=== PATIENT | female | born 1940 | race Caucasian/White ===

== ENCOUNTER 2018-11-05 20:23 | Emergency (ER) | payer MEDICARE, SELFPAY ==
[2018-11-05 20:25] VITALS: BP 176/55; PULSE 57; RESP 16; TEMP 36.7; O2SAT 100; BMI 30.2
[2018-11-05] MEDS: ASPIRIN 81 MG TAB 324 MG PO (20:32)
[2018-11-05 20:39] VITALS: BP 176/55; PULSE 57; RESP 16; TEMP 36.7; O2SAT 100
--- NOTE | 2018-11-05 20:39 | DI.RAD.S_ITS ---
PROCEDURE: XR CHEST 1V INDICATIONS: chest pain TECHNIQUE: One view of the chest was acquired. COMPARISON: None. FINDINGS: Surgical changes and devices: Surgical clips are projected over the right hemithorax. Lungs and pleura: No pleural effusions or pneumothorax. Lungs are clear. Mediastinum: Mediastinal contours appear normal. Heart size is normal. Bones and chest wall: No suspicious bony lesions. Overlying soft tissues appear unremarkable. IMPRESSION: No acute cardiopulmonary findings. Dictated by: Emily Heller M.D. on 11/05/2018 at 21:19 Approved by: Emily Heller M.D. on 11/05/2018 at 21:19
--- NOTE | 2018-11-05 21:00 | ED_ITS ---
HPI - Chest Pain General Chief Complaint: Chest Pain Stated Complaint: CHEST PAIN Time Seen by Provider: 11/05/18 20:36 Source: patient Mode of arrival: ambulatory Limitations: no limitations History of Present Illness HPI narrative: patient is a 78-year-old female who presents with chest discomfort. It sounds as though she has a history of angina and coronary artery disease but no stents or her LA. She is followed closely by a clinical safety specialist some filling him. She says she was seen and evaluated about a month ago she was having chest discomfort and shoulder discomfort at that time. She was put on a nitroglycerin patch which she wore for about 3 weeks and she says it did not help her. She stopped the patch about a week ago. He has had increasing symptoms since then worsening symptoms today. She took 3 nitroglycerin tablets at home which she says has now started helping and her pain is much improved. Related Data Home Medications Medication Instructions Recorded Confirmed atenolol 25 mg BEDTIME 11/05/18 11/05/18 atorvastatin 20 mg PO DAILY 11/05/18 11/05/18 hydrochlorothiazide 12.5 mg PO DAILY 11/05/18 11/05/18 lisinopril 5 mg PO DAILY 11/05/18 11/05/18 sertraline 50 mg PO DAILY 11/05/18 11/05/18 Allergies Allergy/AdvReac Type Severity Reaction Status Date / Time cefpodoxime [CEFPODOXIME] Allergy Unknown Verified 11/05/18 23:05 celecoxib [From CELEBREX] Allergy Unknown Verified 11/05/18 23:05 lansoprazole [From PREVACID] Allergy Unknown Verified 11/05/18 23:05 omeprazole [From PRILOSEC] Allergy Unknown Verified 11/05/18 23:05 sertraline [From ZOLOFT] Allergy Unknown Verified 11/05/18 23:05 simvastatin [SIMVASTATIN] Allergy Unknown Verified 11/05/18 23:05 IODINE Allergy Mild Uncoded 01/27/18 11:48 From CARBOCAINE Allergy Unknown Uncoded 01/27/18 11:48 From TYLENOL Allergy Unknown Uncoded 01/27/18 11:48 LATEX Allergy Unknown Uncoded 01/27/18 11:48 Review of Systems Review of Systems ROS Unobtainable: All systems reviewed & are unremarkable except as noted in HPI and below Constitutional Denies chills, Denies fever(s), Denies lethargy and Denies weakness Eyes Denies change in vision, Denies eye discharge, Denies irritation and Denies loss of vision Cardiovascular Reports as per HPI, Denies dyspnea and Denies dyspnea on exertion Respiratory Denies cough, Denies dyspnea, Denies dyspnea on exertion and Denies wheezing Gastrointestinal Gastrointestinal: Denies abdominal pain, Denies change in bowel habits, Denies diarrhea, Denies nausea and Denies vomiting Musculoskeletal Denies back pain, Denies muscle weakness, Denies numbness and Denies tingling Integumentary/Breasts Denies pruritus, Denies erythema, Denies rash and Denies wounds Neurologic Denies loss of vision, Denies numbness, Denies tingling and Denies weakness Allergic/Immunologic Denies wheezing [facility] Medical History Hyperlipidemia (Chronic) Hypertension (Chronic) Coronary artery disease (Suspected) Social History Smoking Status: Never smoker Exam Initial Vital Signs Initial Vital Signs: Vital Signs Temperature 98.0 F 11/05/18 20:25 Pulse Rate 57 L 11/05/18 20:25 Respiratory Rate 16 11/05/18 20:25 Blood Pressure 176/55 H 11/05/18 20:25 Pulse Oximetry 100 11/05/18 20:25 GENERAL: Alert pleasant elderly female no acute distress HEENT: Head atraumatic,EOMI, pupils reactive, CARDIOVASCULAR: Regular rate and rhythm without murmurs, rubs or gallops. RESPIRATORY: Breath sounds equal bilaterally, no wheezes rales or rhonchi. ABDOMEN: Soft, nontender. Normoactive bowel sounds all 4 quadrants. No guarding or rebound. EXTREMITIES: Normal range of motion, no clubbing or edema. Neurovascularly intact NEUROLOGICAL: Alert and oriented x4.Normal gait and speech. SKIN: Warm, dry, no laceration, no petechiae, no rashes or lesions. Course Orders Ordered: ED Orders 11/05/18 20:39 XR chest 1V Stat EKG-12 Lead Stat 11/05/18 20:40 Complete Blood Count AUTO DIFF Stat Comprehensive Metabolic Panel Stat Lipase Stat Partial Thromboplastin Time Stat Prothrombin Time INR Stat Troponin & CK Cardiac Panel Stat 11/05/18 23:53 Troponin I Stat 11/06/18 EKG-12 Lead Routine Discontinued Medications Aspirin (Aspirin Chew) 324 mg PO NOW ONE Stop: 11/06/18 02:24 Last Admin: 11/05/18 20:32 Dose: 324 mg Vital Signs - 8 hr 11/05/18 20:25 11/05/18 20:39 11/05/18 21:31 Temperature 98.0 F 98.0 F Pulse Rate 57 L 57 L 48 L Respiratory Rate 16 16 17 Blood Pressure 176/55 H Blood Pressure [Left Arm] 176/55 H 162/49 H Pulse Oximetry 100 100 100 11/05/18 22:35 11/05/18 23:06 11/06/18 01:19 Temperature Pulse Rate 52 L 49 L 46 L Respiratory Rate 12 12 13 Blood Pressure Blood Pressure [Left Arm] 169/46 H 169/60 H 158/67 H Pulse Oximetry 99 100 99 11/06/18 02:09 Temperature Pulse Rate 45 L Respiratory Rate 14 Blood Pressure Blood Pressure [Left Arm] 174/61 H Pulse Oximetry 98 MDM - Chest Pain Lab Data Attestation: I reviewed the patient's lab results. Result diagrams: 11/05/18 20:40 11/05/18 20:40 Lab Results 11/05/18 11/05/18 11/05/18 Range/Units 20:40 20:40 20:40 WBC 6.8 (4.5-11.0) X10^3/uL RBC 4.39 (4.0-5.2) X10^6/uL Hgb 13.3 (12.0-16.0) g/dL Hct 39.1 (36-46) % MCV 89.1 (80-100) fL MCH 30.3 (26-34) PG MCHC 34.0 (30-36) % RDW 12.9 (11.6-14.8) % Plt Count 229 (150-400) X10^3/uL Neut % (Auto) 63.4 (50-75) % Lymph % (Auto) 25.9 (25-40) % [place] % (Auto) 7.3 (3-14) % Eos % (Auto) 2.6 (2-4) % Baso % (Auto) 0.8 (0-2) % Neut # (Auto) 4300 (5979-3118) /uL Lymph # (Auto) 1800 (7215-1535) /uL [place] # (Auto) 500 (0-900) /uL Eos # (Auto) 200 (0-450) /uL Baso # (Auto) 100 (0-100) /uL PT 11.3 (10.1-12.7) SECONDS INR 1.0 (0.9-1.3) APTT 20 L (26.4-36.2) SECONDS Sodium 140 (137-145) mmol/L Potassium 3.8 (3.4-5.1) mmol/L Chloride 104 (98-107) mmol/L Carbon Dioxide 29 (22-32) mmol/L BUN 20 H (7-17) mg/dL Creatinine 0.90 (0.52-1.04) mg/dL Estimated GFR > 60.0 (>60) mL/min BUN/Creatinine Ratio 22.2 H (6-22) Glucose 106 (80-110) mg/dL Calcium 10.1 (8.4-10.2) mg/dL Total Bilirubin 0.5 (0.2-1.3) mg/dL AST 33 (14-36) IU/L ALT 28 (9-52) IU/L Alkaline Phosphatase 94 (38-126) U/L Total Creatine Kinase 59 (30-135) U/L CK-MB (CK-2) TNP CK-MB (CK-2) Rel Index TNP Troponin I < 0.012 (0.01-0.034) ng/mL Total Protein 7.5 (6.3-8.2) g/dL Albumin 4.2 (3.5-5.0) g/dL Globulin 3.3 (1.7-4.1) g/dL Albumin/Globulin Ratio 1.3 (1.0-2.8) Lipase 273 (23-300) U/L 11/05/18 Range/Units 23:53 WBC (4.5-11.0) X10^3/uL RBC (4.0-5.2) X10^6/uL Hgb (12.0-16.0) g/dL Hct (36-46) % MCV (80-100) fL MCH (26-34) PG MCHC (30-36) % RDW (11.6-14.8) % Plt Count (150-400) X10^3/uL Neut % (Auto) (50-75) % Lymph % (Auto) (25-40) % [place] % (Auto) (3-14) % Eos % (Auto) (2-4) % Baso % (Auto) (0-2) % Neut # (Auto) (3898-2861) /uL Lymph # (Auto) (2238-1124) /uL [place] # (Auto) (0-900) /uL Eos # (Auto) (0-450) /uL Baso # (Auto) (0-100) /uL PT (10.1-12.7) SECONDS INR (0.9-1.3) APTT (26.4-36.2) SECONDS Sodium (137-145) mmol/L Potassium (3.4-5.1) mmol/L Chloride (98-107) mmol/L Carbon Dioxide (22-32) mmol/L BUN (7-17) mg/dL Creatinine (0.52-1.04) mg/dL Estimated GFR (>60) mL/min BUN/Creatinine Ratio (6-22) Glucose (80-110) mg/dL Calcium (8.4-10.2) mg/dL Total Bilirubin (0.2-1.3) mg/dL AST (14-36) IU/L ALT (9-52) IU/L Alkaline Phosphatase (38-126) U/L Total Creatine Kinase (30-135) U/L CK-MB (CK-2) CK-MB (CK-2) Rel Index Troponin I < 0.012 (0.01-0.034) ng/mL Total Protein (6.3-8.2) g/dL Albumin (3.5-5.0) g/dL Globulin (1.7-4.1) g/dL Albumin/Globulin Ratio (1.0-2.8) Lipase (23-300) U/L Imaging Data Chest x-ray: Radiologist's impression: PROCEDURE: XR CHEST 1V INDICATIONS: chest pain TECHNIQUE: One view of the chest was acquired. COMPARISON: None. FINDINGS: Surgical changes and devices: Surgical clips are projected over the right hemithorax. Lungs and pleura: No pleural effusions or pneumothorax. Lungs are clear. Mediastinum: Mediastinal contours appear normal. Heart size is normal. Bones and chest wall: No suspicious bony lesions. Overlying soft tissues appear unremarkable. IMPRESSION: No acute cardiopulmonary findings. Dictated by: Emily Heller M.D. on 11/05/2018 at 21:19 ECG Data Attestation: I personally reviewed and interpreted this ECG as follows: Prior ECG tracings: available for review Interpretation: EKG CC 1.: Sinus rhythm rate [address] changes no T-wave inversions does have Q-wave noted in lead 3Similar to previous EKG. EKG 2. Sinus rhythm rate 45 no changes MDM Narrative Medical decision making narrative: Patient has Cardiology in [place], she has what sounds like known coronary artery disease without a stent managed medically. Increasing chest discomfort and symptoms. Attempted to treat as outpatient with nitroglycerin patches but did not seem to be working and increased pain tonight. Patient has no EKG changes and troponin is negative. He will need further workup. 12:12AM Dr. [place] hospitalist at [facility] updated patient's symptoms test results accepts patient transfer Patient has had no further chest pain in the ED. Discharge Plan Departure Patient Disposition: [facility] Clinical Impression: Chest pain Prescriptions: No Action atorvastatin 20 mg Tablet 20 mg PO DAILY RF: 0 atenolol 25 mg Tablet 25 mg BEDTIME RF: 0 lisinopril 5 mg Tablet 5 mg PO DAILY RF: 0 sertraline 50 mg Tablet 50 mg PO DAILY RF: 0 hydrochlorothiazide 12.5 mg Tablet 12.5 mg PO DAILY RF: 0
[2018-11-05 21:06] LABS: Add Manual Diff / Slide Review NO; Basophils Absolute Auto 100 /uL (0-100); Basophils Percent Auto 0.8 % (0-2); Eosinophils Absolute Auto 200 /uL (0-450); Eosinophils Percent Auto 2.6 % (2-4); Hematocrit 39.1 % (36-46); Hemoglobin 13.3 g/dL (12.0-16.0); Lymphocytes Absolute Auto 1800 /uL (1100-4500); Lymphocytes Percent Auto 25.9 % (25-40); Mean Corpuscular Hemoglobin 30.3 PG (26-34); Mean Corpuscular Volume 89.1 fL (80-100); Monocytes Absolute Auto 500 /uL (0-900); Monocytes Percent Auto 7.3 % (3-14); Neutrophils Absolute Auto 4300 /uL (1500-7000); Neutrophils Percent Auto 63.4 % (50-75); Platelet Count 229 X10^3/uL (150-400); Red Blood Cell Count 4.39 X10^6/uL (4.0-5.2); Red Cell Distribution Width 12.9 % (11.6-14.8); White Blood Cell Count 6.8 X10^3/uL (4.5-11.0)
[2018-11-05 21:11] LABS: Prothrombin Time 11.3 SECONDS (10.1-12.7)
[2018-11-05 21:14] LABS: PTT Partial Thromboplastin Tim 20 SECONDS (26.4-36.2)
[2018-11-05 21:16] LABS: Alanine Aminotransferase 28 IU/L (9-52); Albumin 4.2 g/dL (3.5-5.0); Albumin Globulin Ratio 1.3 (1.0-2.8); Alkaline Phosphatase 94 U/L (38-126); Aspartate Aminotransferase 33 IU/L (14-36); BUN Creatinine Ratio 22.2 (6-22); Bilirubin Total 0.5 mg/dL (0.2-1.3); Blood Urea Nitrogen 20 mg/dL (7-17); Calcium 10.1 mg/dL (8.4-10.2); Carbon Dioxide 29 mmol/L (22-32); Chloride 104 mmol/L (98-107); Creatine Kinase 59 U/L (30-135); Estimated Glomerular Filt Rate > 60.0 mL/min (>60); Globulin 3.3 g/dL (1.7-4.1); Glucose 106 mg/dL (80-110); HEMOLYSIS < 15 (0-50); Lipase 273 U/L (23-300); Potassium 3.8 mmol/L (3.4-5.1); Sodium 140 mmol/L (137-145); Total Protein 7.5 g/dL (6.3-8.2)
[2018-11-05 21:30] LABS: Troponin I < 0.012 ng/mL (0.01-0.034)
[2018-11-05 21:31] VITALS: BP 162/49; PULSE 48; RESP 17; O2SAT 100
[2018-11-05 22:35] VITALS: BP 169/46; PULSE 52; RESP 12; O2SAT 99
[2018-11-05 23:06] VITALS: BP 169/60; PULSE 49; RESP 12; O2SAT 100
[2018-11-06 00:27] LABS: Troponin I < 0.012 ng/mL (0.01-0.034)
[2018-11-06 01:19] VITALS: BP 158/67; PULSE 46; RESP 13; O2SAT 99
[2018-11-06 02:09] VITALS: BP 174/61; PULSE 45; RESP 14; O2SAT 98
== END 2018-11-06 03:30 | disposition short-term general hospital (02) ==
PROVIDERS: Emergency Provider Emergency Medicine; Family Provider Family Medicine; PCP Family Medicine
DX: R07.89 Other chest pain (principal)
CPT/HCPCS: 36415; 36591; 71045; 80053; 82550; 83690; 84484; 85025; 85610; 85730; 93005; 99283; 99285